=== PATIENT | male | born 1955 | race Caucasian/White ===

== ENCOUNTER → 2017-02-22 17:07 | Outpatient (CLI) | payer BC ==
[2013-04-22 12:05] VITALS: BMI 40.5
[~2017-02-22 17:07] MED LIST: ACETAMINOPHEN500 M1 OR; ACETAMINOPHEN500 M1 PO; ADIPEX-P37.5 M1 PO; ASPIRIN 81 MG E81 MG PO; BENICAR HCT 20-1 TA1 PO; BIOTIN5 MG PO; CELEBREX200 MG PO; CIPRO500 MG PO; COLACE100 MG PO; CUBICIN500 MG IV; EDARBYCLOR 40-1 EAC1 PO; FLOMAX0.4 MG PO; FLUVOXAMINE MA100 M1 PO; LODINE400 MG PO; MIRALAX17 GM PO; OXYCONTIN10 MG PO; PERCOCET 10/3251 TA1 PO; PRILOSEC20 MG PO; PROSCAR5 MG PO; ULTRAM50 MG PO; VICTOZA0.6 MG/0.1 SQ; XARELTO10 MG PO; ZYRTEC10 MG PO; [UNRECOGNIZED DRUG - CODE]
== END | disposition home or self-care (01) ==
LOC: D.LABREF 17:07
DX: R31.9 Hematuria, unspecified (principal); N39.0 Urinary tract infection, site not specified

== ENCOUNTER → 2017-02-24 14:27 | Outpatient (CLI) | payer BC, MEDICARE ==
[2013-04-22 12:05] VITALS: BMI 40.5
== END | disposition home or self-care (01) ==
LOC: D.CT 14:27
DX: R31.9 Hematuria, unspecified (principal)

== ENCOUNTER 2017-02-28 09:30 | Day surgery (SDC) | payer BC, MEDICARE ==
[~2017-02-28 09:30] MED LIST changes: -FLOMAX0.4 MG PO; -PROSCAR5 MG PO
[2017-02-28 10:42] LABS: HEMATOCRIT 45.1 % (42.0-54.0); HEMOGLOBIN 15.1 g/dL (13.5-17.5); MCH 30.1 pg (26.0-34.0); MCHC 33.5 g/dL (31.0-37.0); MEAN PLATELET VOLUME 9.7 fL (7.4-10.4); RBC 5.01 10x6/uL (4.20-6.10); RDW 13.1 % (11.5-14.5); WBC 6.8 10x3/uL (4.8-10.8)
[2017-02-28 10:48] VITALS: BP 109/63; BMI 40.1
[2017-02-28 10:58] LABS: CALC OSMOLALITY 278 mosm/kg (275-300); CALCIUM 9.9 mg/dL (8.5-10.1); CARBON DIOXIDE 26.6 mmol/L (21.0-32.0); CHLORIDE - SERUM 101 mmol/L (98-107); GLUCOSE 92 mg/dL (74-106); POTASSIUM - SERUM 3.8 mmol/L (3.5-5.1); SODIUM 137 mmol/L (136-145); UREA NITROGEN 26 mg/dL (7-18); eGFR NON AFRICAN AMERICAN 81 mL/min (90-120)
--- NOTE | 2017-02-28 11:24 | NUR ---
1118 CALL PLACED TO PHARMACY WITH NOTIFICATION OF NEED FOR RIMSO FOR PROCEDURE. NOREEN STATES OR HAS IT. CALL PLACED TO OR TO REMIND THEM RIMSO NEEDED. Breanna OVALLE R.N.
--- NOTE | 2017-02-28 13:40 | NUR ---
PATIENT AMBULATES TO BATHROOM AND VOIDS LARGE AMOUNT IN TOILET WITHOUT DIFFICULTY. RIGHT WRIST PIV DC'D WITH TIP INTACT. PATIENT DRESSING IN PERSONAL CLOTHING
[2017-02-28] MEDS ORDERED: FLOMAX0.4 MG PO (13:55)
[2017-02-28] MEDS ORDERED: PROSCAR5 MG PO (13:55)
--- NOTE | 2017-02-28 14:05 | NUR ---
DISCHARGE INSTRUCTIONS REVIEWED WITH PATIENT AND SPOUSE. PATIENT DISCHARGED HOME VIA WHEELCHAIR
--- NOTE | 2017-02-28 15:13 | OP ---
PATIENT NAME: TABITHA POOLE MEDICAL RECORD: [id number] :55 LOCATION:[facility] ADMISSION DATE: SURGEON: JEREMIAH CRAMER MD DATE OF OPERATION: 02/28/2017 DATE OF PROCEDURE: 02/28/2017 SURGEON: Jeremiah Cramer MD ANESTHESIA: MAC by Damion Wasserman CRNA PREOPERATIVE DIAGNOSES: Microhematuria, urinary urgency and frequency. PROCEDURE: Cystoscopy. FINDINGS: Obstructive prostate with trilobar hyperplasia. Trabeculated bladder with single ureteral orifices bilaterally. No bladder tumors. No bladder inflammation. BLOOD LOSS: None. CLINICAL HISTORY: This is a 61-year-old male, who was noted to have microhematuria. He also has quite significant urinary frequency and nocturia. His preoperative PSA was 1.1 and on digital rectal examination, his prostate did not feel that large externally. We wondered whether he might have interstitial cystitis. For the hematuria, he also had a CT scan of the abdomen and pelvis, which was normal. He comes now to have cystoscopy. HE IS ALLERGIC TO HYDROCODONE. He was given Ancef 2 grams IV moisture conditioner operator to the OR. DESCRIPTION OF PROCEDURE: The patient was given IV sedation. He was then placed in dorsal lithotomy position, prepped and draped. Uro-Jet lidocaine jelly was inserted into the urethra. A 17-Bangladeshi cystoscope with 30-degree lens was used for visualization. Penile urethra was normal with no strictures or obstruction. He has a vascular and obstructive prostate with trilobar hyperplasia. The bladder neck was especially tight. Going into the bladder, the bladder was heavily trabeculated, but no tumors were present. There was no sign of inflammation either. Single ureteral orifice was seen on each side. The bladder was emptied through the cystoscope sheath and the cystoscope was then entirely removed. I will get the patient started on finasteride and tamsulosin. I will see him in followup in 1 month's time to see how his symptoms are responding to the treatment. TRANSINT:[id number] Voice Confirmation ID: [id number] DOCUMENT ID: [id number] JEREMIAH CRAMER MD at 1513 CC: [id number] DICTATION DATE: 02/28/17 1256 SUPPLY CHAIN GENERALIST: 02/28/17 [address] [id number] [place] [address]
== END 2017-02-28 14:05 | disposition home or self-care (01) ==
LOC: D.OPS 09:30 → D.PAN 12:00 → D.OPS 12:00
PROVIDERS: Anesthesiology
DX: N40.1 Benign prostatic hyperplasia with lower urinary tract symptoms (principal); N13.8 Other obstructive and reflux uropathy; R35.0 Frequency of micturition; R39.15 Urgency of urination; N32.89 Other specified disorders of bladder; Z88.5 Allergy status to narcotic agent; Z01.812 Encounter for preprocedural laboratory examination

== ENCOUNTER → 2017-04-03 06:31 | Outpatient (CLI) | payer BC, MEDICARE ==
[~2017-04-03 06:31] MED LIST changes: +FLOMAX0.4 MG PO; +PROSCAR5 MG PO
== END | disposition home or self-care (01) ==
LOC: D.NM 06:31
DX: M25.561 Pain in right knee (principal)

== ENCOUNTER 2017-10-26 11:31 | Inpatient (IN) | payer BC, MEDICARE ==
[~2017-10-26] VITALS: Ht 180.3 cm; Wt 129.3 kg
[2017-10-26] VITALS (7 sets, daily range): BP systolic 111–129; BP diastolic 52–75; BMI 39.8
[2017-10-26] MEDS ORDERED: LODINE400 MG PO (11:39)
[2017-10-26] MEDS ORDERED: FLINTSTONE1 TAB.CHEW PO (11:41)
[2017-10-26 12:29] LABS: BASOPHILS 0.1 % (0-2); EOSINOPHILS 0.1 % (0-7); HEMATOCRIT 42.5 % (42.0-54.0); HEMOGLOBIN 14.3 g/dL (13.5-17.5); IMMATURE GRANULOCYTES 0.2 % (0-5); LYMPHOCYTES 4.1 % (15-50); MCH 29.9 pg (26.0-34.0); MCHC 33.6 g/dL (31.0-37.0); MCV 88.9 fL (80.0-100.0); MEAN PLATELET VOLUME 9.8 fL (7.4-10.4); MONOCYTES 8.6 % (2-11); NEUTROPHILS 86.9 % (40-80); PLATELET COUNT 223 10x3/uL (130-400); RBC 4.78 10x6/uL (4.20-6.10); RDW 13.3 % (11.5-14.5); WBC 13.3 10x3/uL (4.8-10.8)
[2017-10-26 12:47] LABS: ALBUMIN 3.7 g/dL (3.4-5.0); ANION GAP 14.9 mmol/L (8-16); BILIRUBIN - TOTAL 0.51 mg/dL (0.2-1.3); CALCIUM 9.5 mg/dL (8.5-10.1); CARBON DIOXIDE 25.5 mmol/L (21.0-32.0); CREATININE - SERUM 1.7 mg/dL (0.6-1.3); POTASSIUM - SERUM 3.4 mmol/L (3.5-5.1); PROTEIN - SERUM 7.5 g/dL (6.4-8.2)
[2017-10-26 14:08] LABS: APPEARANCE CLEAR (CLEAR); BILIRUBIN 2+ (NEGATIVE); COLOR YELLOW (YELLOW); GLUCOSE NEGATIVE (NEGATIVE); KETONE NEGATIVE (NEGATIVE); NITRITE NEGATIVE (NEGATIVE); PROTEIN TRACE mg/dL (NEGATIVE); UROBILINOGEN NORMAL (NORMAL)
[2017-10-26 14:10] LABS: BACTERIA MANY /hpf (NONE SEEN); EPITHELIAL CELLS 0-5 /hpf (0-5)
[2017-10-26 14:11] LABS: MUCUS <1+ /lpf (NONE SEEN)
[2017-10-26 14:12] LABS: WAXY CAST OCC /lpf (NONE SEEN)
[2017-10-26 15:38] LABS: CKMB 1.3 U/L (0.0-3.6); CREATINE KINASE 116 UL (21-232)
[2017-10-26 15:39] LABS: TROPONIN-I < 0.017 ng/mL (0.000-0.060)
[2017-10-26 23:55] LABS: CKMB 1.4 U/L (0.0-3.6); CREATINE KINASE 116 UL (21-232); TROPONIN-I < 0.017 ng/mL (0.000-0.060)
[2017-10-27] VITALS: BP 104/56
[2017-10-27 05:19] LABS: BASOPHILS 0.2 % (0-2); EOSINOPHILS 0.3 % (0-7); HEMATOCRIT 40.3 % (42.0-54.0); HEMOGLOBIN 13.5 g/dL (13.5-17.5); IMMATURE GRANULOCYTES 0.2 % (0-5); LYMPHOCYTES 12.4 % (15-50); MCH 29.3 pg (26.0-34.0); MCHC 33.5 g/dL (31.0-37.0); MCV 87.4 fL (80.0-100.0); MEAN PLATELET VOLUME 9.8 fL (7.4-10.4); MONOCYTES 12.8 % (2-11); NEUTROPHILS 74.1 % (40-80); PLATELET COUNT 230 10x3/uL (130-400); RBC 4.61 10x6/uL (4.20-6.10); RDW 13.4 % (11.5-14.5); WBC 10.1 10x3/uL (4.8-10.8)
[2017-10-27 05:37] LABS: CALCIUM 9.2 mg/dL (8.5-10.1); CARBON DIOXIDE 24.9 mmol/L (21.0-32.0); CHLORIDE - SERUM 101 mmol/L (98-107); CKMB 1.3 U/L (0.0-3.6); CREATINE KINASE 107 UL (21-232); GLUCOSE 94 mg/dL (74-106); SODIUM 136 mmol/L (136-145)
[2017-10-27 05:38] LABS: CALC OSMOLALITY 275 mosm/kg (275-300); TROPONIN-I < 0.017 ng/mL (0.000-0.060); UREA NITROGEN 23 mg/dL (7-18); eGFR NON AFRICAN AMERICAN 80 mL/min (90-120)
[2017-10-27 09:20] VITALS: BP 120/58
[2017-10-27 12:30] VITALS: BMI 39.7
[2017-10-27 14:46] VITALS: Ht 180.3 cm; Wt 129.3 kg
[2017-10-27 17:07] VITALS: BP 118/60
[2017-10-27 20:42] VITALS: BP 98/53
[2017-10-28 00:28] VITALS: BP 130/54
[2017-10-28 03:29] LABS: BASOPHILS 0.2 % (0-2); EOSINOPHILS 0.7 % (0-7); HEMATOCRIT 40.7 % (42.0-54.0); HEMOGLOBIN 13.8 g/dL (13.5-17.5); IMMATURE GRANULOCYTES 0.5 % (0-5); LYMPHOCYTES 11.9 % (15-50); MCH 29.6 pg (26.0-34.0); MCHC 33.9 g/dL (31.0-37.0); MCV 87.2 fL (80.0-100.0); MEAN PLATELET VOLUME 9.7 fL (7.4-10.4); MONOCYTES 15.3 % (2-11); NEUTROPHILS 71.4 % (40-80); PLATELET COUNT 214 10x3/uL (130-400); RBC 4.67 10x6/uL (4.20-6.10); RDW 13.4 % (11.5-14.5); WBC 10.5 10x3/uL (4.8-10.8)
[2017-10-28 03:44] LABS: ALBUMIN 2.9 g/dL (3.4-5.0); ANION GAP 12.2 mmol/L (8-16); BILIRUBIN - TOTAL 0.4 mg/dL (0.2-1.3); CALCIUM 9.5 mg/dL (8.5-10.1); CARBON DIOXIDE 25.2 mmol/L (21.0-32.0); CREATININE - SERUM 1.1 mg/dL (0.6-1.3); POTASSIUM - SERUM 3.4 mmol/L (3.5-5.1); PROTEIN - SERUM 6.9 g/dL (6.4-8.2)
[2017-10-28 08:31] VITALS: BP 106/61
[2017-10-28 12:45] VITALS: BP 90/51
[2017-10-28 17:56] VITALS: BP 121/64
[2017-10-28 22:18] VITALS: BP 129/82
[2017-10-29 04:10] VITALS: BP 108/62
[2017-10-29 06:18] LABS: BASOPHILS 0.4 % (0-2); EOSINOPHILS 1.6 % (0-7); HEMATOCRIT 40.4 % (42.0-54.0); HEMOGLOBIN 13.6 g/dL (13.5-17.5); IMMATURE GRANULOCYTES 0.9 % (0-5); LYMPHOCYTES 22.4 % (15-50); MCH 29.4 pg (26.0-34.0); MCHC 33.7 g/dL (31.0-37.0); MCV 87.4 fL (80.0-100.0); MEAN PLATELET VOLUME 9.4 fL (7.4-10.4); MONOCYTES 14.4 % (2-11); NEUTROPHILS 60.3 % (40-80); PLATELET COUNT 228 10x3/uL (130-400); RBC 4.62 10x6/uL (4.20-6.10); RDW 13.2 % (11.5-14.5); WBC 8.1 10x3/uL (4.8-10.8)
[2017-10-29 06:41] LABS: ALBUMIN 2.9 g/dL (3.4-5.0); ALKALINE PHOSPHATASE 72 U/L (46-116); ALT (SGPT) 33 U/L (10-68); BILIRUBIN - TOTAL 0.29 mg/dL (0.2-1.3); CALC OSMOLALITY 283 mosm/kg (275-300); CALCIUM 9.3 mg/dL (8.5-10.1); CARBON DIOXIDE 29.1 mmol/L (21.0-32.0); CHLORIDE - SERUM 107 mmol/L (98-107); GLUCOSE 91 mg/dL (74-106); POTASSIUM - SERUM 3.7 mmol/L (3.5-5.1); PROTEIN - SERUM 6.3 g/dL (6.4-8.2); SODIUM 142 mmol/L (136-145); UREA NITROGEN 15 mg/dL (7-18); eGFR NON AFRICAN AMERICAN 80 mL/min (90-120)
[2017-10-29 09:20] VITALS: BP 121/70
[2017-10-29 12:03] VITALS: BP 114/65
[2017-10-29 15:39] VITALS: BP 114/61
[2017-10-29 21:48] VITALS: BP 115/73
[2017-10-30 00:56] VITALS: BP 112/56
[2017-10-30 03:33] VITALS: BP 124/65
[2017-10-30 04:42] LABS: BASOPHILS 0.9 % (0-2); EOSINOPHILS 2.2 % (0-7); HEMATOCRIT 38.1 % (42.0-54.0); HEMOGLOBIN 12.8 g/dL (13.5-17.5); IMMATURE GRANULOCYTES 3.4 % (0-5); LYMPHOCYTES 28.8 % (15-50); MCHC 33.6 g/dL (31.0-37.0); MCV 86.4 fL (80.0-100.0); MEAN PLATELET VOLUME 9.4 fL (7.4-10.4); MONOCYTES 12.9 % (2-11); NEUTROPHILS 51.8 % (40-80); PLATELET COUNT 240 10x3/uL (130-400); RBC 4.41 10x6/uL (4.20-6.10); WBC 7.4 10x3/uL (4.8-10.8)
[2017-10-30 04:55] LABS: ALBUMIN 2.7 g/dL (3.4-5.0); ALKALINE PHOSPHATASE 65 U/L (46-116); ALT (SGPT) 32 U/L (10-68); BILIRUBIN - TOTAL 0.28 mg/dL (0.2-1.3); CALC OSMOLALITY 282 mosm/kg (275-300); CALCIUM 8.7 mg/dL (8.5-10.1); CARBON DIOXIDE 28.8 mmol/L (21.0-32.0); CHLORIDE - SERUM 106 mmol/L (98-107); CREATININE - SERUM 0.9 mg/dL (0.6-1.3); GLUCOSE 85 mg/dL (74-106); PROTEIN - SERUM 6.2 g/dL (6.4-8.2); SODIUM 142 mmol/L (136-145); UREA NITROGEN 14 mg/dL (7-18); eGFR NON AFRICAN AMERICAN > 90 mL/min (90-120)
[2017-10-30 05:19] LABS: POTASSIUM - SERUM 3.1 mmol/L (3.5-5.1)
[2017-10-30 08:06] VITALS: BP 109/57
[2017-10-30 12:36] VITALS: BP 106/64
[2017-10-30 15:23] VITALS: BP 105/62
[2017-10-30 20:00] VITALS: BP 130/69
[2017-10-31] VITALS: BP 119/70
[2017-10-31 04:00] VITALS: BP 128/61
[2017-10-31 06:22] LABS: BASOPHILS 0.3 % (0-2); EOSINOPHILS 1.8 % (0-7); HEMATOCRIT 37.4 % (42.0-54.0); HEMOGLOBIN 12.7 g/dL (13.5-17.5); IMMATURE GRANULOCYTES 5.6 % (0-5); LYMPHOCYTES 23.7 % (15-50); MCH 28.9 pg (26.0-34.0); MEAN PLATELET VOLUME 8.8 fL (7.4-10.4); MONOCYTES 9.7 % (2-11); NEUTROPHILS 58.9 % (40-80); PLATELET COUNT 216 10x3/uL (130-400); RDW 12.9 % (11.5-14.5); WBC 8.7 10x3/uL (4.8-10.8)
[2017-10-31 06:58] LABS: ALBUMIN 2.8 g/dL (3.4-5.0); ALKALINE PHOSPHATASE 64 U/L (46-116); BILIRUBIN - TOTAL 0.27 mg/dL (0.2-1.3); CALC OSMOLALITY 277 mosm/kg (275-300); CALCIUM 8.8 mg/dL (8.5-10.1); CARBON DIOXIDE 26.5 mmol/L (21.0-32.0); CHLORIDE - SERUM 107 mmol/L (98-107); CREATININE - SERUM 0.9 mg/dL (0.6-1.3); GLUCOSE 90 mg/dL (74-106); POTASSIUM - SERUM 3.5 mmol/L (3.5-5.1); PROTEIN - SERUM 6.2 g/dL (6.4-8.2); SODIUM 140 mmol/L (136-145); UREA NITROGEN 11 mg/dL (7-18); eGFR NON AFRICAN AMERICAN > 90 mL/min (90-120)
[2017-10-31 07:03] LABS: ALT (SGPT) 70 U/L (10-68)
[2017-10-31 07:58] VITALS: BP 143/76
[2017-10-31] MEDS ORDERED: FLORAJEN3 CAPS460 MG PO (11:16)
[2017-10-31] MEDS ORDERED: LEVAQUIN750 MG PO (11:17)
[2017-10-31] MEDS ORDERED: QUESTRAN LIG1 PACKET PO (11:17)
[2017-10-31] MEDS ORDERED: FLAGYL500 MG PO (11:18)
[2017-10-31 11:19] VITALS: BP 125/71
[2017-10-31] MEDS ORDERED: LOMOTIL TABLET1 TAB PO (11:19)
[2017-11-08 12:15] LABS: OVA + PARASITE EXAM Final report (())
== END 2017-10-31 16:48 | disposition home or self-care (01) | DRG 392 ==
LOC: D.ER 11:31 → D.MS 14:38 → OBSVTIME 14:38 → D.EDHOLD 14:38 → D.SDCHOLD 16:23 → D.EDHOLD 16:23 → D.MS 19:14
PROVIDERS: Family Medicine; Internal Medicine Nephrology
DX: K52.9 Noninfective gastroenteritis and colitis, unspecified (principal); N17.9 Acute kidney failure, unspecified; N39.0 Urinary tract infection, site not specified; E87.6 Hypokalemia; E86.0 Dehydration; I10 Essential (primary) hypertension; K21.9 Gastro-esophageal reflux disease without esophagitis; N40.0 Benign prostatic hyperplasia without lower urinary tract symptoms; F32.9 Major depressive disorder, single episode, unspecified

== ENCOUNTER → 2017-11-22 09:08 | Outpatient (CLI) | payer BC, MEDICARE ==
[2017-10-27 14:46] VITALS: BMI 39.7
[~2017-11-22 09:08] MED LIST changes: +FLAGYL500 MG PO; +FLINTSTONE1 TAB.CHEW PO; +FLORAJEN3 CAPS460 MG PO; +LEVAQUIN750 MG PO; +LOMOTIL TABLET1 TAB PO; +QUESTRAN LIG1 PACKET PO
== END | disposition home or self-care (01) ==
LOC: D.LAB 09:08
DX: R19.7 Diarrhea, unspecified (principal); K52.9 Noninfective gastroenteritis and colitis, unspecified

== ENCOUNTER → 2017-11-27 13:29 | Outpatient (CLI) | payer BC, MEDICARE ==
[2017-10-27 14:46] VITALS: BMI 39.7
== END | disposition home or self-care (01) ==
LOC: D.LABREF 13:29
DX: N39.0 Urinary tract infection, site not specified (principal)

== ENCOUNTER 2018-02-09 10:20 | Emergency (ER) | payer BC, MEDICARE ==
[~2018-02-09] VITALS: Ht 180.3 cm; Wt 133.2 kg
[2018-02-09 10:23] VITALS: Ht 180.3 cm; Wt 133.2 kg
[2018-02-09 12:41] VITALS: BP 125/75
[2018-02-19] MEDS ORDERED: FLOMAX0.4 MG PO (10:49)
[2018-02-19] MEDS ORDERED: OZEMPIC INJ (10:50)
[2018-02-19] MEDS ORDERED: FLUVOXAMINE MA100 M1 PO (10:53)
[2018-02-19] MEDS ORDERED: ZYRTEC10 MG PO (10:54)
[2018-02-19] MEDS ORDERED: ACETAMINOPHEN500 M1 PO (10:55)
[2018-02-19] MEDS ORDERED: MULTI-DAY VITAM1 TAB PO (10:55)
[2018-02-19] MEDS ORDERED: PROBIOTIC BLEN1 EACH PO (10:59)
[2018-02-19] MEDS ORDERED: OMEPRAZOLE20 M1 PO (10:59)
[2018-02-19] MEDS ORDERED: FIBER-TABS625 MG PO (10:59)
== END 2018-02-09 12:42 | disposition home or self-care (01) ==
LOC: D.ER 10:20
DX: S01.01XA Laceration without foreign body of scalp, initial encounter (principal); W22.8XXA Striking against or struck by other objects, initial encounter; Y93.89 Activity, other specified; Y92.019 Unspecified place in single-family (private) house as the place of occurrence of the external cause; I10 Essential (primary) hypertension; N42.9 Disorder of prostate, unspecified; Z85.828 Personal history of other malignant neoplasm of skin

== ENCOUNTER 2018-02-20 07:18 | Day surgery (SDC) | payer BC, MEDICARE ==
[2018-02-19 11:32] LABS: HEMATOCRIT 42.4 % (42.0-54.0); HEMOGLOBIN 14.5 g/dL (13.5-17.5); MCH 29.4 pg (26.0-34.0); MCHC 34.2 g/dL (31.0-37.0); MEAN PLATELET VOLUME 9.2 fL (7.4-10.4); RBC 4.93 10x6/uL (4.20-6.10); RDW 13.4 % (11.5-14.5); WBC 7.7 10x3/uL (4.8-10.8)
[2018-02-19 11:42] LABS: CALC OSMOLALITY 282 mosm/kg (275-300); CALCIUM 9.7 mg/dL (8.5-10.1); CARBON DIOXIDE 31.8 mmol/L (21.0-32.0); CHLORIDE - SERUM 101 mmol/L (98-107); CREATININE - SERUM 0.9 mg/dL (0.6-1.3); GLUCOSE 94 mg/dL (74-106); POTASSIUM - SERUM 3.5 mmol/L (3.5-5.1); SODIUM 140 mmol/L (136-145); UREA NITROGEN 23 mg/dL (7-18); eGFR NON AFRICAN AMERICAN > 90 mL/min (90-120)
[~2018-02-20] VITALS: Ht 180.3 cm; Wt 132.9 kg
--- NOTE | ~2018-02-20 | OP ---
PATIENT NAME: TABITHA POOLE MEDICAL RECORD: [id number] :55 LOCATION:[facility] ADMISSION DATE: SURGEON: JEREMIAH CRAMER MD DATE OF OPERATION: 02/20/2018 SURGEON: Jeremiah Cramer MD ANESTHESIA: TIVA by Concha Gray CRNA. DIAGNOSIS: Obstructive BPH. PROCEDURES: Cystoscopy, UroLift procedure, four units placed. The fourth unit was attempted, but the clip fell off. The prostatic urethra remained open so no further units were placed. FINDINGS: Obstructive bilateral lateral lobes with a short prostatic urethra. Single ureteral orifices bilaterally. No bladder tumors were seen. BLOOD LOSS: None. CLINICAL HISTORY: This is a 62-year-old male, who has obstructive BPH. He has recurrent episodes of urinary tract infections as well as urge urinary incontinence. He has nocturia times 3-4. He has been on finasteride and tamsulosin for many months and the medications are not helping him. He now wishes to have further treatment beyond the medications. He comes today for UroLift procedure. He is allergic to HYDROCODONE. He was given Ancef 2 grams IV election judge to the OR. DESCRIPTION OF PROCEDURE: The patient was given IV sedation. He was placed in dorsal lithotomy position. Lidocaine jelly was inserted into the urethra. The 20-Slovak cystoscope was placed using the visual obturator. He does not have any urethral strictures. The prostate shows bilateral lateral lobe hyperplasia with obstruction in the midline. Going into the bladder, no bladder tumors were seen. The single ureteral orifices are seen bilaterally. We then placed the 2 bladder neck units 1.5 to 2 cm distal to the bladder neck. This was placed on each side. The left verumontanum unit was then placed. The right verumontanum unit was placed and when I was removing the device, the clip got caught on it and the clips fell off. Going back with the visual obturator, I could see the clip lying on the floor of the prostatic urethra. The prostatic channel; however, was wide open and there was really no need for a replacement for the fourth unit. Therefore, I placed a regular cystoscope and using flexible grasping forceps, the clip was entirely removed. There is some fluid left in the bladder for the patient to void with voiding trial. I will see the patient in followup in 3 weeks' time. TRANSINT:[id number] Voice Confirmation ID: [id number] DOCUMENT ID: [id number] OPERATIVE REPORT [id number] TABITHA POOLE ROBERT S MD at 1138 CC: [id number] DICTATION DATE: 02/20/18 110 VISITOR SERVICES TECHNICIAN: 02/20/18 [address] [place] [id number] [place] [id number]
[~2018-02-20 07:18] MED LIST changes: +FIBER-TABS625 MG PO; +MULTI-DAY VITAM1 TAB PO; +OMEPRAZOLE20 M1 PO; +OZEMPIC INJ; +PROBIOTIC BLEN1 EACH PO
[2018-02-20] MEDS ORDERED: MULTI-DAY VITAM1 TAB PO (08:24)
[2018-02-20] MEDS ORDERED: TYLENOL PM1 TAB PO (08:25)
[2018-02-20] MEDS ORDERED: FLUVOXAMINE MA100 M1 PO (08:28)
[2018-02-20 08:51] VITALS: BP 118/71; Ht 180.3 cm; Wt 132.9 kg
== END 2018-02-20 13:09 | disposition home or self-care (01) ==
LOC: D.OPS 07:18 → D.PAN 09:45 → D.OPS 09:45
PROVIDERS: Anesthesiology
DX: N40.1 Benign prostatic hyperplasia with lower urinary tract symptoms (principal); N39.41 Urge incontinence; N13.8 Other obstructive and reflux uropathy; R35.1 Nocturia; Z88.5 Allergy status to narcotic agent; Z01.812 Encounter for preprocedural laboratory examination

== ENCOUNTER 2019-03-27 12:15 | Day surgery (SDC) | payer BC, MEDICARE ==
[~2019-03-27] VITALS: Ht 180.3 cm; Wt 133.2 kg
[~2019-03-27 12:15] MED LIST changes: +TYLENOL PM1 TAB PO
[2019-03-27 12:55] LABS: HEMATOCRIT 46.7 % (42.0-54.0); HEMOGLOBIN 15.6 g/dL (13.5-17.5); LYMPHOCYTES 18.6 % (15-50); MCH 29.2 pg (26.0-34.0); MCHC 33.4 g/dL (31.0-37.0); MCV 87.3 fL (80.0-100.0); MEAN PLATELET VOLUME 9.1 fL (7.4-10.4); NEUTROPHILS 74.9 % (40-80); PLATELET COUNT 277 10x3/uL (130-400); RBC 5.35 10x6/uL (4.20-6.10); RDW 12.9 % (11.5-14.5); WBC 8.5 10x3/uL (4.8-10.8)
[2019-03-27 13:03] LABS: CALC OSMOLALITY 281 mosm/kg (275-300); CARBON DIOXIDE 28.3 mmol/L (21.0-32.0); CHLORIDE - SERUM 101 mmol/L (98-107); CREATININE - SERUM 0.9 mg/dL (0.6-1.3); GLUCOSE 102 mg/dL (74-106); POTASSIUM - SERUM 3.4 mmol/L (3.5-5.1); SODIUM 140 mmol/L (136-145); UREA NITROGEN 20 mg/dL (7-18); eGFR NON AFRICAN AMERICAN > 90 mL/min (90-120)
[2019-03-27] MEDS ORDERED: EDARBYCLOR 40-1 EAC1 PO (13:32)
[2019-03-27] MEDS ORDERED: TOPAMAX100 MG PO (13:34)
[2019-03-27] MEDS ORDERED: [UNRECOGNIZED DRUG - OTHER] (13:36)
[2019-03-27] MEDS ORDERED: ZYRTEC10 MG PO (13:36)
[2019-03-27] MEDS ORDERED: PROBIOTIC1 EAC1 PO (13:37)
[2019-03-27] MEDS ORDERED: COLACE100 MG PO (13:39)
[2019-03-27] MEDS ORDERED: ULTRAM50 MG PO (13:40)
[2019-03-27 13:47] VITALS: BP 119/59; Ht 180.3 cm; Wt 133.2 kg
--- NOTE | 2019-03-27 16:09 | NUR ---
1555-DISCHARGE CRITERIA MET. REMOVED IV FROM RIGHT ARM WITH CATH INTACT,DISPOSED INTO SHARPS,COVERED SITE WITH BANDAID. REVIEWED POST OPERATIVE INSTRUCTIONS WITH PT AND SPOUSE.VERBALIZED UNDERSTANDING. VSS. BS ACTIVE X 4 QUADS, ABLE TO PASS GAS. DENIES PAIN.
--- NOTE | 2019-03-27 16:11 | NUR ---
1603- PT DRESSED. ESCORTED OUT VIA W/C WITH SPOUSE AWAITING TO DRIVE HOME.
--- NOTE | 2019-03-28 12:06 | OP ---
PATIENT NAME: TABITHA POOLE MEDICAL RECORD: [id number] :55 LOCATION:[facility] ADMISSION DATE: SURGEON: CHITRA SHARMA DO DATE OF OPERATION: 03/27/2019 PROCEDURE: Colonoscopy. INDICATIONS FOR PROCEDURE: History of colitis, diverticulosis of colon, history of colon polyps. This is a 1-year recall for reevaluation of polyps and past colitis. SCOPE: Olympus video pediatric colonoscope. MEDICATIONS: Propofol 450 mg IV per anesthesia. WITHDRAWAL TIME: 8 minutes. ESTIMATED BLOOD LOSS: None. COMPLICATIONS: None. FINDINGS: Informed consent was given. The patient was made comfortable with the above medication. After reaching an adequate level of sedation by slow IV push, the patient was placed on his left side. A digital rectal examination was performed and was normal. The endoscope was then advanced under direct visualization through the rectum to the cecum and terminal ileum. The endoscope was slowly withdrawn and the mucosa was carefully examined. The prep quality was good. There was evidence of mild diverticulosis involving the sigmoid colon. There was no evidence of diverticulitis. There were no polyps visualized on today's examination. The mucosa of the entire colon appeared normal. The terminal ileal mucosa appeared normal. There was no evidence of colitis, ulcerations, or other abnormalities. Retroflexion was performed in the rectum with visualization of a normal-appearing rectal wall. The endoscope was withdrawn from the patient. The patient tolerated the procedure well and there were no complications. IMPRESSION: 1. Mild diverticulosis of the sigmoid colon. 2. Otherwise, normal mucosa throughout the colon and terminal ileum. PLAN AND RECOMMENDATIONS: 1. Discharge home when recovery parameters are met. 2. High-fiber diet. 3. Continue current medications. 4. Recall colonoscopy in 5 years based on the personal history of polyps. TRANSINT:[id number] Voice Confirmation ID: [id number] DOCUMENT ID: [id number] OPERATIVE REPORT [id number] TABITHA POOLE CHITRA SHARMA DO at 1206 CC: [id number] DICTATION DATE: 03/27/19 1457 LOADER HELPER: 03/27/192014 [facility] 03/27/19 [place] [address]
== END 2019-03-27 16:03 | disposition home or self-care (01) ==
LOC: D.OPS 12:15
PROVIDERS: Anesthesiology; ATTEND Internal Medicine Gastroenterology
DX: K57.30 Diverticulosis of large intestine without perforation or abscess without bleeding (principal); Z86.010 Personal history of colon polyps